=== PATIENT | female | born 1970 | race Caucasian/White ===

== ENCOUNTER → 2017-06-10 | Outpatient (CLI) | payer MEDICAID ==
[2017-06-10 12:40] LABS: HEMOGLOBIN 14.1 g/dL (12.2-16.2); LYMPH # 1.8 K/mm3 (0.7-4.5); LYMPH % 26.2 % (10-50.0)
[2017-06-10 14:43] LABS: BUN 12 mg/dL (7-18)
[2017-06-10 14:48] LABS: GFR (ESTIMATED) 67 ML/MIN (59-)
== END ==
LOC: LAB 12:15
PROVIDERS: Internal Medicine
DX: I10 Essential (primary) hypertension (principal); M17.0 Bilateral primary osteoarthritis of knee; E04.9 Nontoxic goiter, unspecified; E03.9 Hypothyroidism, unspecified